=== PATIENT | male | born 1985 | race Caucasian/White ===

== ENCOUNTER 2017-02-10 12:50 | Emergency (ER) | payer MEDICAID ==
[~2017-02-10] VITALS: Ht 172.7 cm; Wt 68.2 kg
[~2017-02-10 12:50] MED LIST: AMOXICILLIN 50500 MG PO; CEPHALEXIN500 M1 PO; FLAGYL500 MG PO; FLEXERIL 1010 MG/TAB PO; FLEXERIL10 MG PO; LORTAB 5/500 501 TAB PO; MOTRIN 600600 MG/TAB PO; NAPROSYN500 MG PO; NO HOME MEDICATIONS; NORCO 325 MG-51 TAB PO; PEN-VEE K500 MG PO; PREDNISONE20 MG PO
[2017-02-10 12:59] VITALS: BP 120/74; TEMP 98.1
[2017-02-10] MEDS ORDERED: FLEXERIL 1010 MG/TAB PO (14:47)
[2017-02-10] MEDS ORDERED: CRUTCHES MC (15:20)
[2017-02-10 15:27] VITALS: PULSE 79
== END 2017-02-10 15:28 | disposition home or self-care (01) ==
LOC: COL.ER 12:50
DX: M54.16 Radiculopathy, lumbar region (principal); F17.200 Nicotine dependence, unspecified, uncomplicated
CPT/HCPCS: J1885; J2360

== ENCOUNTER 2018-02-05 10:04 | Emergency (ER) | payer MEDICAID ==
[~2018-02-05] VITALS: Ht 170.2 cm; Wt 59.1 kg
[~2018-02-05 10:04] MED LIST changes: +CRUTCHES MC
[2018-02-05 10:07] VITALS: BP 112/63; TEMP 98
[2018-02-05 10:40] LABS: BASO % 0.6 % (0.0-2.0); EOS # 0.2 (0.0-0.7); EOS % 3.4 % (0-4.0); GRAN # 4.3 (1.4-6.5); GRAN % 61.6 % (42.2-75.2); HEMATOCRIT 38.9 % (42.0-52.0); HEMOGLOBIN 13.2 g/dl (13.5-18.0); LYMPH # 1.5 (1.2-3.4); LYMPH % 20.9 % (20.0-51.0); MEAN CELL VOLUME 91 fl (80.0-100.0); MEAN CORPUSCULAR HEMOGLOBIN 31 pg (27.0-31.0); MEAN CORPUSCULAR HGB CONC 34 g/dl (33.0-37.0); MONO # 0.9 (0.1-0.6); MONO % 13.2 % (1.7-9.3); PLATELET COUNT 201 K/mm3 (130-400); RED BLOOD COUNT 4.28 M/mm3 (4.20-5.60); REDCELL DISTRIBUTION WIDTH-CV 12.7 % (11.5-14.5)
[2018-02-05 10:57] LABS: CALCIUM 9.1 mg/dL (8.4-10.2); CREATININE, serum 0.61 mg/dL (0.66-1.25); POTASSIUM 4.3 mmol/L (3.4-5.0)
[2018-02-05] MEDS ORDERED: CLEOCIN HCL300 MG PO (11:21)
[2018-02-05 11:45] VITALS: PULSE 63
== END 2018-02-05 11:52 | disposition home or self-care (01) ==
LOC: COL.ER 10:04
PROVIDERS: Physician Assistant
DX: K08.89 Other specified disorders of teeth and supporting structures (principal); R22.0 Localized swelling, mass and lump, head; F17.210 Nicotine dependence, cigarettes, uncomplicated
CPT/HCPCS: J7030; Q9967

== ENCOUNTER 2018-02-23 16:22 | Emergency (ER) | payer MEDICAID ==
[~2018-02-23] VITALS: Ht 167.6 cm; Wt 57.7 kg
[~2018-02-23 16:22] MED LIST changes: +CLEOCIN HCL300 MG PO
[2018-02-23 16:27] VITALS: BP 121/66; TEMP 98.7
[2018-02-23 17:15] VITALS: PULSE 85
== END 2018-02-23 17:18 | disposition home or self-care (01) ==
LOC: COL.ER 16:22
DX: M25.561 Pain in right knee (principal); G43.909 Migraine, unspecified, not intractable, without status migrainosus; F17.210 Nicotine dependence, cigarettes, uncomplicated
CPT/HCPCS: L1846

== ENCOUNTER 2018-10-06 07:28 | Emergency (ER) | payer MEDICAID ==
[~2018-10-06] VITALS: Ht 172.7 cm; Wt 68.2 kg
[2018-10-06 07:34] VITALS: BP 113/56; TEMP 97.5
[2018-10-06] MEDS ORDERED: AMOXICILLIN 50500 MG PO (08:19)
[2018-10-06 08:32] VITALS: PULSE 80
== END 2018-10-06 08:32 | disposition home or self-care (01) ==
LOC: COL.ER 07:28
DX: K02.9 Dental caries, unspecified (principal); F17.210 Nicotine dependence, cigarettes, uncomplicated

== ENCOUNTER 2019-03-08 13:19 | Emergency (ER) | payer MEDICAID ==
[~2019-03-08] VITALS: Ht 170.2 cm; Wt 68.2 kg
[2019-03-08 13:24] VITALS: BP 117/59; PULSE 83; TEMP 98.3
[2019-03-08 14:07] LABS: STREP SCREEN NEGATIVE
[2019-03-08] MEDS ORDERED: CLEOCIN HCL300 MG PO (14:23)
== END 2019-03-08 14:53 | disposition home or self-care (01) ==
LOC: COL.ER 13:19
PROVIDERS: Nurse Practitioner
DX: K08.89 Other specified disorders of teeth and supporting structures (principal); F17.210 Nicotine dependence, cigarettes, uncomplicated

== ENCOUNTER 2019-07-16 19:00 | Emergency (ER) | payer MEDICAID ==
[~2019-07-16] VITALS: Ht 167.6 cm; Wt 65.9 kg
[2019-07-16 19:41] LABS: STREP SCREEN NEGATIVE
[2019-07-16] MEDS ORDERED: TAMIFLU 75MG75 MG PO (20:18)
[2019-07-16 20:38] VITALS: BP 138/88; PULSE 90; TEMP 98.9
== END 2019-07-16 20:42 | disposition home or self-care (01) ==
LOC: COL.ER 19:00
PROVIDERS: Physician Assistant
DX: J11.1 Influenza due to unidentified influenza virus with other respiratory manifestations (principal); F17.210 Nicotine dependence, cigarettes, uncomplicated

== ENCOUNTER → 2020-01-04 | Outpatient (CLI) | payer MEDICAID ==
[~2020-01-04] MED LIST changes: +TAMIFLU 75MG75 MG PO
== END ==
LOC: COL.LAB 09:36 → COL.RAD 09:36
DX: M51.37 Other intervertebral disc degeneration, lumbosacral region (principal); M25.561 Pain in right knee

== ENCOUNTER 2020-04-03 09:23 | Emergency (ER) | payer MEDICAID ==
[~2020-04-03] VITALS: Ht 167.6 cm; Wt 59.1 kg
[2020-04-03 09:31] VITALS: BP 116/70; TEMP 98.3
[2020-04-03 10:58] VITALS: PULSE 79
== END 2020-04-03 10:58 | disposition home or self-care (01) ==
LOC: COL.ER 09:23
DX: S20.212A Contusion of left front wall of thorax, initial encounter (principal); F17.210 Nicotine dependence, cigarettes, uncomplicated; Z88.1 Allergy status to other antibiotic agents; W01.198A Fall on same level from slipping, tripping and stumbling with subsequent striking against other object, initial encounter; Y93.E1 Activity, personal bathing and showering

== ENCOUNTER 2020-04-12 13:50 | Emergency (ER) | payer MEDICAID ==
[~2020-04-12] VITALS: Ht 167.6 cm; Wt 61.4 kg
[2020-04-12 13:53] VITALS: BP 142/90; PULSE 100; TEMP 98.7
[2020-04-12] MEDS ORDERED: FLONASEALLERGY NS (14:09)
[2020-04-12] MEDS ORDERED: CLEOCIN HCL300 MG PO (14:09)
== END 2020-04-12 14:28 | disposition home or self-care (01) ==
LOC: COL.ER 13:50
DX: J31.0 Chronic rhinitis (principal); R59.0 Localized enlarged lymph nodes; Z20.828 Contact with and (suspected) exposure to other viral communicable diseases; Z88.1 Allergy status to other antibiotic agents

== ENCOUNTER 2021-02-26 09:25 | Emergency (ER) | payer MEDICAID ==
[~2021-02-26] VITALS: Ht 167.6 cm; Wt 68.2 kg
[~2021-02-26 09:25] MED LIST changes: +FLONASEALLERGY NS
[2021-02-26 09:40] VITALS: BP 109/58; PULSE 70; TEMP 98
== END 2021-02-26 10:14 | disposition home or self-care (01) ==
LOC: COL.ER 09:25
DX: G56.02 Carpal tunnel syndrome, left upper limb (principal)

== ENCOUNTER 2022-01-05 14:23 | Emergency (ER) | payer MEDICAID ==
[~2022-01-05] VITALS: Ht 170.2 cm; Wt 68.2 kg
[2022-01-05 14:54] VITALS: TEMP 98.6
[2022-01-05] MEDS ORDERED: AMOXICILLIN 8751 TAB PO (15:10)
[2022-01-05] MEDS ORDERED: MOTRIN 800800 MG/TAB PO (15:10)
[2022-01-05] MEDS ORDERED: NORCO 325 MG-51 TAB PO (15:10)
[2022-01-05 15:25] VITALS: BP 128/61; PULSE 80
== END 2022-01-05 15:25 | disposition home or self-care (01) ==
LOC: COL.ER 14:23
DX: K02.9 Dental caries, unspecified (principal)
CPT/HCPCS: J1885

== ENCOUNTER 2022-01-06 08:43 | Emergency (ER) | payer MEDICAID ==
[~2022-01-06] VITALS: Ht 170.2 cm; Wt 68.2 kg
[~2022-01-06 08:43] MED LIST changes: +AMOXICILLIN 8751 TAB PO; +MOTRIN 800800 MG/TAB PO
[2022-01-06 08:51] VITALS: BP 125/81; PULSE 82; TEMP 98.1
== END 2022-01-06 09:15 | disposition home or self-care (01) ==
LOC: COL.ER 08:43
DX: K08.89 Other specified disorders of teeth and supporting structures (principal); Z28.311 Partially vaccinated for COVID-19
CPT/HCPCS: J0696